=== PATIENT | female | born 1950 | race Caucasian/White ===

== ENCOUNTER 2016-10-27 15:51 | Emergency (ER) | payer OTHER ==
[~2016-10-27] VITALS: Wt 62.0 kg
[~2016-10-27 15:51] MED LIST: ALBU8.5H5 IH; AUG875 PO; PROM6.25 PO
[2016-10-27] MEDS ORDERED: SOD CHLORIDE 0.9% 1,000 ML IV STA (16:18)
[2016-10-27] MEDS ORDERED: ONDANSETRON 4 MG INJ IV STA ×2 (16:18→16:43)
[2016-10-27] MEDS ORDERED: HYDROmorphONE 1 MG/ML SYG IV STA (16:18)
[2016-10-27 16:42] LABS: ADD SCAN DIFF NO
[2016-10-27 16:45] LABS: HEMATOCRIT 39.4 % (37.0-47.0); HEMOGLOBIN 13.2 g/dl (12.0-16.0); MEAN CORPUSCULAR HEMOGLOBIN 29.9 pg (29.0-33.0); MEAN CORPUSCULAR HGB CONC 33.5 g/dl (32.0-37.0); MEAN CORPUSCULAR VOLUME 89.3 fl (82.0-101.0); MEAN PLATELET VOLUME 10.3 fl (7.4-10.4); PLATELET COUNT 239 10^3/UL (140-415); RED BLOOD COUNT 4.41 10^6/ul (4.20-5.40); WHITE BLOOD COUNT 5.8 10^3/ul (4.8-10.8)
[2016-10-27 16:59] LABS: ALBUMIN 3.9 g/dl (3.3-4.9); POTASSIUM 3.5 mmol/L (3.5-5.1)
[2016-10-27 17:02] LABS: ALBUMIN/GLOBULIN RATIO 1.05; BILIRUBIN,INDIRECT 0.7 mg/dl (0-1.1); BILIRUBIN,TOTAL 0.7 mg/dl (0.2-1.3); CALCIUM 8.5 mg/dl (8.4-10.2); CREATININE 0.55 mg/dl (0.44-1.00); TOTAL PROTEIN 7.6 g/dl (6.1-8.1)
[2016-10-27] MEDS ORDERED: SOD CHLORIDE 0.9% 100 ML ONE (17:17)
[2016-10-27] MEDS ORDERED: IOHEXOL 300MG/ML 150 ML BTL ONE (17:17)
[2016-10-27] MEDS ORDERED: OMEP20CA16 PO (17:38)
[2016-10-27] MEDS ORDERED: LOSA50TA6 PO (17:38)
[2016-10-27] MEDS ORDERED: METF500T3 PO (17:39)
[2016-10-27] MEDS ORDERED: MAXZ25 PO (17:39)
[2016-10-27 18:30] VITALS: BP 111/60; PULSE 72; RESP 20; TEMP 98.2
[2016-10-27 18:33] LABS: BASOPHIL # 0.1 10^3/ul (0.0-0.1); EOSINOPHILS # 0.2 10^3/ul (0.0-0.5); LYMPHOCYTES # 0.9 10^3/ul (0.8-2.9); MONOCYTE # 0.7 10^3/ul (0.3-0.9); NEUTROPHIL # 3.2 10^3/ul (1.6-7.5)
--- NOTE | 2016-10-27 18:59 | RADRPT ---
PROCEDURE: CT Abdomen and Pelvis with contrast. CLINICAL INDICATION: Abdominal pain. TECHNIQUE: Multiple contiguous axial CT images of the abdomen and pelvis were obtained following t he administration of 100 cc of Omnipaque-300. Coronal and sagittal reconstructions were also perfor med. CTDIvol (mGy): 7.91; Total Exam DLP (mGy-cm): 461.59. One or more of the following dose reduction techniques were utilized: - Automated exposure control. - Adjustment of the mA and/or kV according to patient size. - Use of iterative reconstruction technique. COMPARISON: None. FINDINGS: Limited imaging of the lower thorax demonstrates mild basilar atelectatic changes. The liver and spleen are homogeneous in enhancement. The gallbladder is surgically absent. Mild in trahepatic and moderate extrahepatic biliary duct dilatation are present. The common bile duct marc ures 13 mm in greatest diameter. The pancreas and adrenal glands are unremarkable. There is no panc reatic duct dilatation. The kidneys are symmetric in size and enhancement. There is no hydronephrosis or abnormal perinephr ic inflammation. There are no ureteral stones. Bilateral simple renal cysts are present. The abdominal aorta is normal in caliber. Atherosclerotic calcification is present. There is no cruz aortic / retroperitoneal lymphadenopathy. The stomach is collapsed. Nondilated fluid filled loops of small intestines are seen within the lef t and lower aspects of the abdomen. Sigmoid diverticulosis is present. There is concentric wall th ickening / submucosal edema of the rectosigmoid colon. There is also mild associated mesenteric hyp eremia. Rectosigmoid colitis may be present. There is no free intra-abdominal air or pneumatosis. There is no evidence of organized fluid collection. The appendix is normal. The bladder, uterus and adnexa are unremarkable. There is no free pelvic fluid. There is no pelvic sidewall or inguinal lymphadenopathy. Very mild degenerative changes of the spine are present. Surgical changes of the right upper abdomi nal wall are present. The abdominal wall is intact. IMPRESSION: Surgical changes compatible with cholecystectomy with common bile duct dilatation measuring up to 13 mm. Imaging findings may reflect the presence of choledocholithiasis. Correlate with biliary enzy mes and consider further evaluation with MRCP. Sigmoid diverticulosis. There is concentric wall thickening and submucosal edema of the distal sigm oid colon and rectum which may reflect rectosigmoid colitis. Correlate with appropriate clinical da ta and signs and symptomatology. Scattered few nonspecific nondistended fluid-filled loops of small intestines. RPTAT: QQ .aGuri Beck MD, MD Date Time Electronically viewed and signed by .Gauri Beck MD, on 10/27/2016 18:59 .T/
[2016-10-27] MEDS ORDERED: CIPR500T4 PO (19:47)
[2016-10-27] MEDS ORDERED: METR500T14 PO (19:47)
[2016-10-27] MEDS ORDERED: HYDR-902 PO (19:47)
[2016-10-27] MEDS ORDERED: ONDA4TAB14 PO (19:47)
--- NOTE | 2016-10-27 19:50 | ERD ---
ER Documentation Chief Complaint Date/Time DATE: 10/27/16 TIME: 19:48 Chief Complaint ABD PAIN X4 DAYS, NO N/V/D, REFERED PER PMD HPI This 66-year-old female complains of 4 days of left lower pain with nausea vomiting and diarrhea that is nonbilious and nonbloody. No fever. The pain is described as crampy and constant left lower quadrant without radiation no back pain no dysuria or hematuria. No chest pain shortness of breath. No prior history of similar symptoms. ROS All systems reviewed and are negative except as per history of present illness. Medications Home Meds Active Scripts Ondansetron (Ondansetron Odt) 4 Mg Tab.rapdis, 4 MG PO Q6H Y for NAUSEA AND/OR VOMITING, #10 TAB Prov:AMADOR CASTREJON DO 10/27/16 Hydrocodone/Acetaminophen ([place] 10-325 Tablet) 1 Each Tablet, 1 TAB PO Q6H Y for PAIN, #20 TAB Prov:AMADOR CASTREJON DO 10/27/16 Metronidazole* (Metronidazole*) 500 Mg Tablet, 500 MG PO TID for 10 Days, TAB Prov:AMADOR CASTREJON DO 10/27/16 Ciprofloxacin Hcl* (Ciprofloxacin Hcl*) 500 Mg Tablet, 500 MG PO BID, #14 TAB Prov:AMADOR CASTREJON DO 10/27/16 Reported Medications Metformin Hcl* (Metformin Hcl* ER) 500 Mg Tab.sr.24h, 500 MG PO DAILY, #30 TAB 10/27/16 Triamterene/Hctz* (Maxzide (37.5-25)*) 1 Each Tablet, 1 EACH PO DAILY, #30 TAB 10/27/16 Omeprazole* (Omeprazole*) 20 Mg Capsule.dr, 20 MG PO DAILY, #30 CAP 10/27/16 Losartan Potassium* (Losartan Potassium*) 50 Mg Tablet, 50 MG PO DAILY, TAB 10/27/16 Discontinued Scripts Promethazine w/Codeine* (Phenergan w/Codeine* Syrup) 5 Ml Syrup, 5 ML PO Q4H Y for COUGH, #120 ML Prov:LEONORA BHAKTA PA-C 04/16/15 Amoxicillin-Clavulanate K* (Augmentin*) 875 Mg Tab, 875 MG PO BID for 7 Days, TAB Prov:YONYLEONORA POLINA 04/16/15 Albuterol Sulfate* (Albuterol Sulfate* HFA) 8.5 Gm Hfa.aer.ad, 2 PUFF IH Q4H Y for COUGH, #1 EA Prov:LEONORA BHAKTA POLINA 04/16/15 Allergies Allergies: Coded Allergies: No Known Allergy (Unverified , 01/13/15) PMhx/Soc Medical and Surgical Hx: pt denies Medical Hx, pt denies Surgical Hx History of Surgery: No Anesthesia Reaction: No Hx Neurological Disorder: No Hx Respiratory Disorders: No Hx Cardiac Disorders: No Hx Psychiatric Problems: No Hx Miscellaneous Medical Probl: Yes (Complains of sore throat and right earache ) Hx Alcohol Use: No Hx Substance Use: No Hx Tobacco Use: No Smoking Status: Never smoker FmHx Family History: No coronary disease Physical Exam Vitals Vital Signs Date Time Temp Pulse Resp B/P Pulse Ox O2 Delivery O2 Flow Rate FiO2 10/27/16 18:30 98.2 72 20 111/60 100 Room Air 10/27/16 16:01 99.8 89 17 131/73 99 Physical Exam Const: Well-developed, well-nourished Head: Atraumatic, normocephalic Eyes: Normal Conjunctiva, PERRLA, EOMI, normal sclera, no nystagmus ENT: Normal External Ears, Nose and Mouth, moist mucus membranes. Neck: Full range of motion. No meningismus, no lymphadenopathy. Resp: Clear to auscultation bilaterally, no wheezing, rhonchi, rales Cardio: Regular rate and rhythm, no murmurs, S1 S2 present Abd: Soft, moderate left lower quadrant tenderness, non distended. Normal bowel sounds, no guarding or rebound, no pulsitile abdominal masses or bruits Skin: No petechiae or rashes, no ecchymosis , no maculopapular rash Back: No midline or flank tenderness Ext: No cyanosis, or edema, FROM x 4, normal inspection, neurovascularly intact x 4 Neur: Awake and alert, STR 5/5 x 4, sensation intact x 4, no focal findings, cerebellum intact Psych: Normal Mood and Affect Result Diagram: 10/27/16 1530 10/27/16 1530 Results 24 hrs Laboratory Tests Test 10/27/16 15:30 Alanine Aminotransferase (ALT/SGPT) 26IU/L Albumin 3.9g/dl Albumin/Globulin Ratio 1.05 Alkaline Phosphatase 119IU/L Anion Gap 18 Aspartate Amino Transf (AST/SGOT) 27IU/L Band Neutrophils % 11.0% Basophils # 0.110^3/ul Basophils % 1.0% Blood Urea Nitrogen 15mg/dl Calcium Level 8.5mg/dl Carbon Dioxide Level 24mmol/L Chloride Level 105mmol/L Creatinine 0.55mg/dl Direct Bilirubin 0.00mg/dl Eosinophils # 0.210^3/ul Eosinophils % 4.0% Globulin 3.70g/dl Glucose Level 117mg/dl Hematocrit 39.4% Hemoglobin 13.2g/dl Indirect Bilirubin 0.7mg/dl Lipase 79U/L Lymphocytes # 0.910^3/ul Lymphocytes % 16.0% Mean Corpuscular Hemoglobin 29.9pg Mean Corpuscular Hemoglobin Concent 33.5g/dl Mean Corpuscular Volume 89.3fl Mean Platelet Volume 10.3fl Monocytes # 0.710^3/ul Monocytes % 12.0% Neutrophils # 3.210^3/ul Neutrophils % 56.0% Platelet Count 74051^3/UL Potassium Level 3.5mmol/L Red Blood Count 4.4110^6/ul Red Cell Distribution Width 13.0% Sodium Level 143mmol/L Total Bilirubin 0.7mg/dl Total Protein 7.6g/dl White Blood Count 5.810^3/ul Current Medications Medications (Trade) Dose Ordered Sig/Luisito Route PRN Reason Start Time Stop Time Status Last Admin Dose Admin Sodium Chloride (NS) 1,000 ml @ 1,000 mls/hr Q1H STAT IV 10/27/16 16:18 10/27/16 17:17 DC 10/27/16 16:39 Hydromorphone HCl (Dilaudid) 1 mg ONCE STAT IV 10/27/16 16:18 10/27/16 16:20 DC 10/27/16 16:39 Ondansetron HCl (Zofran Inj) 4 mg ONCE STAT IV 10/27/16 16:18 10/27/16 16:20 DC 10/27/16 16:39 Ondansetron HCl (Zofran Inj) 4 mg ONCE STAT IV 10/27/16 16:43 10/27/16 16:44 DC 10/27/16 16:54 IV Flush 10 ml 10 ml STK-MED ONCE .ROUTE 10/27/16 17:17 10/27/16 17:18 DC 10/27/16 17:58 Sodium Chloride (NS) 100 ml @ ud STK-MED ONCE .ROUTE 10/27/16 17:17 10/27/16 17:18 DC 10/27/16 17:58 Iohexol (Omnipaque 300mg/ ml) 150 ml STK-MED ONCE .ROUTE 10/27/16 17:17 10/27/16 17:18 DC 10/27/16 17:59 Procedures/MDM PROCEDURE: CT Abdomen and Pelvis with contrast. CLINICAL INDICATION: Abdominal pain. TECHNIQUE: Multiple contiguous axial CT images of the abdomen and pelvis were obtained following the administration of 100 cc of Omnipaque-300. Coronal and sagittal reconstructions were also performed. CTDIvol (mGy): 7.91; Total Exam DLP (mGy-cm): 461.59. One or more of the following dose reduction techniques were utilized: - Automated exposure control. - Adjustment of the mA and/or kV according to patient size. - Use of iterative reconstruction technique. COMPARISON: None. FINDINGS: Limited imaging of the lower thorax demonstrates mild basilar atelectatic changes. The liver and spleen are homogeneous in enhancement. The gallbladder is surgically absent. Mild intrahepatic and moderate extrahepatic biliary duct dilatation are present. The common bile duct measures 13 mm in greatest diameter. The pancreas and adrenal glands are unremarkable. There is no pancreatic duct dilatation. The kidneys are symmetric in size and enhancement. There is no hydronephrosis or abnormal perinephric inflammation. There are no ureteral stones. Bilateral simple renal cysts are present. The abdominal aorta is normal in caliber. Atherosclerotic calcification is present. There is no periaortic / retroperitoneal lymphadenopathy. The stomach is collapsed. Nondilated fluid filled loops of small intestines are seen within the left and lower aspects of the abdomen. Sigmoid diverticulosis is present. There is concentric wall thickening / submucosal edema of the rectosigmoid colon. There is also mild associated mesenteric hyperemia. Rectosigmoid colitis may be present. There is no free intra- abdominal air or pneumatosis. There is no evidence of organized fluid collection. The appendix is normal. The bladder, uterus and adnexa are unremarkable. There is no free pelvic fluid. There is no pelvic sidewall or inguinal lymphadenopathy. Very mild degenerative changes of the spine are present. Surgical changes of the right upper abdominal wall are present. The abdominal wall is intact. IMPRESSION: Surgical changes compatible with cholecystectomy with common bile duct dilatation measuring up to 13 mm. Imaging findings may reflect the presence of choledocholithiasis. Correlate with biliary enzymes and consider further evaluation with MRCP. Sigmoid diverticulosis. There is concentric wall thickening and submucosal edema of the distal sigmoid colon and rectum which may reflect rectosigmoid colitis. Correlate with appropriate clinical data and signs and symptomatology. Scattered few nonspecific nondistended fluid-filled loops of small intestines. RPTAT: QQ .Gauri Beck MD, Date Time Electronically viewed and signed by .Gauri Beck MD, on 10/27/2016 18:59 .T/ CC: AMADOR CASTREJON DO Patient's white blood count is normal. Patient will be discharged home on Flagyl and Cipro and [place] and Zofran. No evidence of perforation or abscess. Abdominal warning precautions given Departure Diagnosis: Primary Impression: Colitis Condition: Stable Patient Instructions: Abdominal Pain, Unknown Cause, (Female), Vomiting And Diarrhea, Nonspecific (Adult) AMADOR CASTREJON DO Oct 27, 2016 19:50
== END 2016-10-27 20:08 | disposition home or self-care (01) ==
LOC: E/R 15:51
DX: K52.9 Noninfective gastroenteritis and colitis, unspecified (principal); R11.2 Nausea with vomiting, unspecified; R40.2142 Coma scale, eyes open, spontaneous, at arrival to emergency department; R40.2362 Coma scale, best motor response, obeys commands, at arrival to emergency department; R40.2252 Coma scale, best verbal response, oriented, at arrival to emergency department; Z79.84 Long term (current) use of oral hypoglycemic drugs
CPT/HCPCS: 36415; 74177; 80053; 83690; 85025; 96374; 96375; J1170; J2405; J7030; Q9967; Z7502; Z7610

== ENCOUNTER 2017-01-13 23:16 | Emergency (ER) | payer OTHER ==
[~2017-01-13] VITALS: Ht 152.4 cm; Wt 62.0 kg
[~2017-01-13 23:16] MED LIST changes: -ALBU8.5H5 IH; -AUG875 PO; +CIPR500T4 PO; +HYDR-902 PO; +LOSA50TA6 PO; +MAXZ25 PO; +METF500T3 PO; +METR500T14 PO; +OMEP20CA16 PO; +ONDA4TAB14 PO; -PROM6.25 PO
[2017-01-13 23:18] VITALS: Ht 152.4 cm; Wt 62.0 kg
[2017-01-14] MEDS ORDERED: HYDROCODONE/APAP (5/325) TAB PO ONE (00:30)
--- NOTE | 2017-01-14 00:40 | ERD ---
ER Documentation Chief Complaint Date/Time DATE: 01/14/17 TIME: 00:28 Chief Complaint Left upper back pain after fall 3 days ago. HPI 66-year-old female presents to emergency department for complaint of left upper back, rib pain after falling 3 days ago. Patient And fell, landing on the left upper back. Patient denies any other joint pains. Patient describes the pain as throbbing pain, 6/10 scale, heard a crack when stretching this morning, worse upon movement. Patient did not take any medications of symptoms. Patient did not use consciousness after the injury. Patient denies any nausea vomiting. Patient denies any numbness or tingling. Patient denies any dizziness. Patient denies any dyspnea on exertion or dyspnea on lying down. Patient denies any abdominal pain. ROS All systems reviewed and are negative except as per history of present illness. Medications Home Meds Active Scripts Ondansetron (Ondansetron Odt) 4 Mg Tab.rapdis, 4 MG PO Q6H Y for NAUSEA AND/OR VOMITING, #10 TAB Prov:AMADOR CASTREJON DO 10/27/16 Hydrocodone/Acetaminophen ([place] 10-325 Tablet) 1 Each Tablet, 1 TAB PO Q6H Y for PAIN, #20 TAB Prov:AMADOR CASTREJON DO 10/27/16 Metronidazole* (Metronidazole*) 500 Mg Tablet, 500 MG PO TID for 10 Days, TAB Prov:AMADOR CASTREJON DO 10/27/16 Ciprofloxacin Hcl* (Ciprofloxacin Hcl*) 500 Mg Tablet, 500 MG PO BID, #14 TAB Prov:AMADOR CASTREJON DO 10/27/16 Reported Medications Metformin Hcl* (Metformin Hcl* ER) 500 Mg Tab.sr.24h, 500 MG PO DAILY, #30 TAB 10/27/16 Triamterene/Hctz* (Maxzide (37.5-25)*) 1 Each Tablet, 1 EACH PO DAILY, #30 TAB 10/27/16 Omeprazole* (Omeprazole*) 20 Mg Capsule.dr, 20 MG PO DAILY, #30 CAP 10/27/16 Losartan Potassium* (Losartan Potassium*) 50 Mg Tablet, 50 MG PO DAILY, TAB 10/27/16 Allergies Allergies: Coded Allergies: No Known Allergy (Unverified , 01/13/15) PMhx/Soc History of Surgery: No Anesthesia Reaction: No Hx Neurological Disorder: No Hx Respiratory Disorders: No Hx Cardiac Disorders: Yes (HTN) Hx Psychiatric Problems: No Hx Miscellaneous Medical Probl: Yes (Pre DM) Hx Alcohol Use: No Hx Substance Use: No Hx Tobacco Use: No Smoking Status: Never smoker FmHx Family History: No coronary disease, No diabetes, No other Physical Exam Vitals Vital Signs Date Time Temp Pulse Resp B/P Pulse Ox O2 Delivery O2 Flow Rate FiO2 01/13/17 23:18 97.8 75 20 172/70 100 Physical Exam GENERAL: The patient is well developed and appropriate for usual state of health, in no apparent distress. CHEST: Clear to auscultation bilaterally. There are no rales, wheezes or rhonchi. Tenderness on palpation on left posterior 6th 7th and eighth rib. HEART: Regular rate and rhythm. No murmurs, clicks, rubs or gallops. No S3 or S4. ABDOMEN: Soft, nontender and nondistended. Good bowel sounds. No rebound or guarding. No gross peritonitis. No gross organomegaly or masses. No Hess sign or McBurney point tenderness. BACK: No midline or flank tenderness. EXTREMITIES: Equal pulses bilaterally. There is no peripheral clubbing, cyanosis or edema. No focal swelling or erythema. Full range of motion. Grossly neurovascularly intact. NEURO: Alert and oriented. Cranial nerves 2-12 intact. Motor strength in all 4 extremities with 5/5 strength. Sensation grossly intact. Normal speech and gait. SKIN: There is no apparent rash or petechia. The skin is warm and dry. HEMATOLOGIC AND LYMPHATIC: There is no evidence of excessive bruising or lymphedema. No gross cervical, axillary, or inguinal lymphadenopathy. Results 24 hrs Laboratory Tests Test 01/14/17 01:16 Bedside Urine pH (LAB) 7.5 Bedside Urine Protein (LAB) Negative Bedside Urine Glucose (UA) Negative Bedside Urine Ketones (LAB) Negative Bedside Urine Blood Negative Bedside Urine Nitrite (LAB) Negative Bedside Urine Leukocyte Esterase (L 1+ Current Medications Medications (Trade) Dose Ordered Sig/Luisito Route PRN Reason Start Time Stop Time Status Last Admin Dose Admin Acetaminophen/ Hydrocodone Bitart ([place] (5/325)) 1 tab ONCE ONCE PO 01/14/17 00:30 01/14/17 00:31 DC 01/14/17 01:10 Patient was given medication for pain here in emergency department, after treatment, patient verbalized feeling much better. Patient's pain is improved. PROCEDURE: X-ray left ribs CLINICAL INDICATION: Posterior left rib pain. TECHNIQUE: 4 views of the left ribs. COMPARISON: Plain film chest dated today. FINDINGS: No acute fracture or dislocation. No left pneumothorax. Soft tissues unremarkable. IMPRESSION: No acute fracture. RPTAT: [facility] Physician Wero Date Time Electronically viewed and signed by Physician Wero on 01/14/2017 01:34 RS/ CC: MACY FREED EXERCISE RIDER PROCEDURE: CHEST - 1 VIEW CLINICAL INDICATION: 66-year-old female with left-sided chest pain. TECHNIQUE: A single frontal AP upright view of the chest was performed. The images were reviewed on a PACS workstation. COMPARISON: Chest x-ray April 16, 2015; left rib series obtained concurrently. FINDINGS: The cardiomediastinal silhouette is prominent but within normal limits. There is mild elevation right hemidiaphragm. There is mild right basilar subsegmental atelectasis. There is no evidence for an infiltrate. There is no evidence for congestive heart failure. There is no evidence for pneumothorax. The osseous structures are intact. IMPRESSION: Mild elevation of the right hemidiaphragm with right basilar subsegmental atelectasis. .Maciej Babb MD, MD Date Time Electronically viewed and signed by .Maciej Babb MD, MD on 01/14/2017 01:37 .M/ CC: MACY FREED EXERCISE RIDER Procedures/MDM Medical Decision Making: Patient's pain is most likely consistent with a with contusion. There is no suspicion for neurovascular compromise. Patient does symptoms of pneumothorax, and symptoms of cardiopulmonary emergencies. Patient does not have any fever. Radiology exams of the affected area does not show any fracture or dislocation. Incidental finding of urinary tract infection was given , no symptoms of pyelonephritis. Disposition: Home. Patient is given prescription for ibuprofen for mild to moderate pain pain, [place] for severe pain, Keflex for urinary tract infection. Patient was advised to apply ice on affected area. Patient was advised that if symptoms are worse, shortness of breath dizziness worsening symptoms, to return to emergency department immediately. Otherwise, patient is advised to follow up with the primary care doctor in 5-7 days for reevaluation of symptoms. Departure Diagnosis: Primary Impression: Contusion of rib on left side Encounter type: initial encounter Qualified Code: S20.212A - Contusion of rib on left side, initial encounter Additional Impression: UTI (urinary tract infection) Urinary tract infection type: acute cystitis Hematuria presence: without hematuria Qualified Code: N30.00 - Acute cystitis without hematuria Condition: Stable Patient Instructions: Rib Contusion, Understanding Urinary Tract Infections ( UTIs) Additional Instructions: Patient is given prescription for ibuprofen for [place] pain, [place] for severe pain. Patient was advised to apply ice on affected area. Patient was advised that if symptoms are worse, shortness of breath dizziness worsening symptoms, to return to emergency department immediately. Otherwise, patient is advised to follow up with the primary care doctor in 5-7 days for reevaluation of symptoms. MACY FREED NP January 14, 2017 00:38
[2017-01-14 01:13] LABS: URINE BLOOD (Dip) POC Negative (NEGATIVE)
--- NOTE | 2017-01-14 01:34 | RADRPT ---
PROCEDURE: X-ray left ribs CLINICAL INDICATION: Posterior left rib pain. TECHNIQUE: 4 views of the left ribs. COMPARISON: Plain film chest dated today. FINDINGS: No acute fracture or dislocation. No left pneumothorax. Soft tissues unremarkable. IMPRESSION: No acute fracture. RPTAT: [facility] Physician Wero Date Time Electronically viewed and signed by Sunil Morocho Physician on 01/14/2017 01:34 RS/
--- NOTE | 2017-01-14 01:37 | RADRPT ---
PROCEDURE: CHEST - 1 VIEW CLINICAL INDICATION: 66-year-old female with left-sided chest pain. TECHNIQUE: A single frontal AP upright view of the chest was performed. The images were reviewed on a PACS workstation. COMPARISON: Chest x-ray April 16, 2015; left rib series obtained concurrently. FINDINGS: The cardiomediastinal silhouette is prominent but within normal limits. There is mild elevation rig ht hemidiaphragm. There is mild right basilar subsegmental atelectasis. There is no evidence for a n infiltrate. There is no evidence for congestive heart failure. There is no evidence for pneumotho rax. The osseous structures are intact. IMPRESSION: Mild elevation of the right hemidiaphragm with right basilar subsegmental atelectasis. .Maciej Babb MD, Date Time Electronically viewed and signed by .Maciej Babb MD, on 01/14/2017 01:37 .M/
[2017-01-14] MEDS ORDERED: HYDR-906 PO (01:51)
[2017-01-14] MEDS ORDERED: IBUP-1542 PO (01:51)
[2017-01-14] MEDS ORDERED: CEPH-443 PO (01:51)
== END 2017-01-14 02:25 | disposition home or self-care (01) ==
LOC: FTE 23:16
DX: S20.212A Contusion of left front wall of thorax, initial encounter (principal); N30.00 Acute cystitis without hematuria; I10 Essential (primary) hypertension; W18.39XA Other fall on same level, initial encounter; Y92.9 Unspecified place or not applicable
CPT/HCPCS: 71010; 71100; 81003; Z7502; Z7610

== ENCOUNTER 2017-03-21 12:01 | Day surgery (SDC) | payer OTHER ==
[~2017-03-21] VITALS: Ht 152.4 cm; Wt 60.7 kg
[~2017-03-21 12:01] MED LIST changes: +CEPH-443 PO; +HYDR-906 PO; +IBUP-1542 PO
[2017-03-21 12:46] VITALS: Ht 152.4 cm; Wt 60.7 kg
[2017-03-21] MEDS ORDERED: LIDOCAINE 4% SOLUTION 50 ML BTL ONE (13:13)
[2017-03-21] MEDS ORDERED: FENTAnyl 50 MCG/ML VIAL ONE (14:06)
[2017-03-21] MEDS ORDERED: MIDAZOLAM 1 MG/ML 2 ML INJ ONE (14:06)
--- NOTE | 2017-03-21 14:12 | OPR ---
Date/Time of Note Date/Time of Note DATE: 03/21/17 TIME: 14:02 Operative Report Preoperative Diagnosis ABDOMINAL PAIN R/O COLITIS Postoperative Diagnosis NORMAL EGD COLONOSCOPY DIVERTICULOSIS Surgeon: BAY CURRAN MD Anesthesia: other (MODERATE SEDATION) Estimated Blood Loss: minimal (1/2 CC) Specimens GASTRIC BIOPSY Grafts/Implants N/A Complications: None BAY CURRAN MD Mar 21, 2017 14:12
[2017-03-21 14:15] VITALS: BP 134/78; RESP 14
--- NOTE | 2017-03-21 18:03 | GILP ---
DATE OF PROCEDURE: PREOPERATIVE DIAGNOSIS: Abdominal pain. Rule out colitis. PROCEDURE PERFORMED: Esophagogastroduodenoscopy and biopsy. POSTOPERATIVE DIAGNOSIS: Essentially normal upper endoscopy, but random gastric biopsy done. PROCEDURE: The patient was put in left lateral decubitus. After obtaining informed consent, the patient was sedated, monitored on oximetry, EKG, blood pressure. Posterior pharynx anesthetized with 4 percent xylocaine, 2 mg IV Versed and 50 mcg of fentanyl given. I then advanced an Olympus video upper endoscope into the esophagus, stomach and duodenum up to 2nd part. Examination of the entire esophagus is normal. Stomach including the fundus by retroflexion is normal. The body and antrum normal. Pyloric channel easily entered and examination of the duodenal bulb, 1st and 2nd part normal. The scope was withdrawn back in the stomach, random biopsy done, and then the scope was withdrawn. Patient had no complication. Very minimal blood loss of maybe half a cc. Postoperatively the patient was sent to recovery after colonoscopy. PLAN: Will be to await for biopsy report. Followup as outpatient in about 2 weeks. Dictated By: Hiram Sargent MD /coretta/jam /Document#: [id number]
--- NOTE | 2017-03-21 18:08 | GILP ---
DATE OF PROCEDURE: 03/21/2017 PREOPERATIVE DIAGNOSIS: History of colitis on the x-ray report, abdominal pain. She may have a common duct stone causing abdominal pain, however, colitis has to be ruled out, so patient underwent colonoscopy. POSTOPERATIVE DIAGNOSIS: Diverticulosis in the sigmoid and descending colon mild to moderate. No diverticulitis. No colitis. DESCRIPTION OF PROCEDURE: The patient was put in left lateral decubitus after upper endoscopy. No further sedation was required. Rectal examination was done. The patient was monitored, oximetry, EKG, blood pressure. Rectal examination was done, which is normal. I then advanced an Olympus video pediatric colonoscope all the way to the cecum. The ileocecal valve, appendiceal opening identified. Cecum, ascending colon, transverse colon normal, but as the descending colon and sigmoid colon showed few diverticula in the sigmoid and descending colon junction there was moderate diverticulosis, but no diverticulitis, no evidence of any colitis. In the rectum including retroflexion done and demonstrated only grade 1 internal hemorrhoids. Upon removal of the scope, patient had no complication. PLAN: Will be to request her to come back for a possible ERCP because of her abdominal pain and markedly dilated common duct on CT scan with stone. Dictated By: Hiram Sargent MD /coretta/jam /Document#: [id number]
== END 2017-03-21 15:00 | disposition home or self-care (01) ==
LOC: GIL 12:01
PROVIDERS: ATTEND Internal Medicine
DX: K57.90 Diverticulosis of intestine, part unspecified, without perforation or abscess without bleeding (principal); E11.9 Type 2 diabetes mellitus without complications; I10 Essential (primary) hypertension; J45.909 Unspecified asthma, uncomplicated; K64.8 Other hemorrhoids
CPT/HCPCS: 43239; 45378; 82962; 88305; 88312; J2250; J3010; Z7610